=== PATIENT | female | born 1980 | race Two or more races ===

== ENCOUNTER 2022-04-30 14:58 | Emergency (ER) | payer OTHER ==
[~2022-04-30] VITALS: Ht 160 cm; Wt 111.1 kg
== END 2022-04-30 18:55 | disposition home or self-care (01) ==
LOC: ER 14:58
DX: S82.62XA Displaced fracture of lateral malleolus of left fibula, initial encounter for closed fracture (principal); W19.XXXA Unspecified fall, initial encounter; Y93.89 Activity, other specified; Y92.89 Other specified places as the place of occurrence of the external cause